=== PATIENT | female | born 1985 | race Caucasian/White ===

== ENCOUNTER 2018-03-03 00:08 | Emergency (ER) | payer MEDICAID ==
[~2018-03-03] VITALS: Ht 167.6 cm; Wt 81.8 kg
[2018-03-03 00:15] VITALS: BP 120/71
== END 2018-03-03 01:00 | disposition left against medical advice (07) ==
LOC: EMS 00:09
DX: M25.512 Pain in left shoulder (principal); R07.9 Chest pain, unspecified; F17.210 Nicotine dependence, cigarettes, uncomplicated; F12.90 Cannabis use, unspecified, uncomplicated; Z53.21 Procedure and treatment not carried out due to patient leaving prior to being seen by health care provider

== ENCOUNTER 2022-09-19 17:56 | Emergency (ER) | payer MEDICAID, OTHER ==
[~2022-09-19] VITALS: Ht 170.2 cm; Wt 94.1 kg
[2022-09-19 18:35] LABS: BASOPHILS % (AUTO) 0.8 % (0.0-2.0); EOSINOPHILS % (AUTO) 3.5 % (1.0-6.0); HEMATOCRIT 42.3 % (36-46); HEMOGLOBIN 13.9 g/dL (12.0-16.0); LYMPHOCYTES % (AUTO) 38.6 % (22.0-44.0); MEAN CORPUSCULAR HEMOGLOBIN 30.9 pg (26.0-34.0); MEAN CORPUSCULAR HGB CONC 32.9 G/dL (31.0-37.0); MEAN CORPUSCULAR VOLUME 94 fL (80-100); MONOCYTES # (AUTO) 0.6 K/uL (0.1-1.0); MONOCYTES % (AUTO) 7.3 % (2.0-9.0); NEUTROPHILS # (AUTO) 3.9 K/uL (1.8-7.7); NEUTROPHILS % (AUTO) 49.8 % (40.0-70.0); PLATELET COUNT (AUTO) 244 K/uL (150-450); RED CELL DISTRIBUTION WIDTH 13.8 % (11.5-14.5)
[2022-09-19 18:56] LABS: ANION GAP 9 mmol/L (8-16); CALCIUM, TOTAL 9.3 mg/dL (8.8-10.5); CARBON DIOXIDE 28 mmol/L (22-29); CHLORIDE 102 mmol/L (98-107); CREATININE 0.64 mg/dL (0.60-1.30); GLOMERULAR FILTR. RATE CALC > 60 mL/min (>60); GLUCOSE,RANDOM 118 mg/dL (70-110); POTASSIUM 3.6 mmol/L (3.5-5.1); SODIUM SERUM 139 mmol/L (136-145); UREA NITROGEN, BLOOD 10 mg/dL (7-18)
[2022-09-19 18:58] LABS: ALANINE AMINOTRANSFERASE 440 U/L (12-78); ALBUMIN 4.3 g/dL (3.4-5.0); ALKALINE PHOSPHATASE 73 U/L (46-116); ASPARTATE AMINOTRANSFERASE 204 U/L (15-37); BILIRUBIN,TOTAL 0.4 mg/dL (0.1-1.0); LIPASE 106 U/L (73-393); TOTAL PROTEIN, SERUM 8.2 g/dL (6.4-8.2)
[2022-09-19 19:27] LABS: SALICYLATE 1.2 mg/dL (2.8-20.0)
[2022-09-19 19:42] LABS: ACETAMINOPHEN < 2 mcg/mL (10-30)
[2022-09-19 19:45] LABS: AMPHET/METH SCREEN,URINE NEGATIVE (NEGATIVE); BARBITURATE SCREEN, URINE NEGATIVE (NEGATIVE); BENZODIAZEPINES SCREEN,URINE NEGATIVE (NEGATIVE); CANNABINOID SCREEN,URINE NEGATIVE (NEGATIVE); COCAINE SCREEN,URINE NEGATIVE (NEGATIVE); METHADONE SCREEN, URINE NEGATIVE (NEGATIVE); OPIATE SCREEN,URINE NEGATIVE (NEGATIVE); PHENCYCLIDINE SCREEN,URINE NEGATIVE (NEGATIVE)
[2022-09-19 20:26] LABS: PROTHROMBIN TIME 10.3 SEC (9.4-11.6)
[2022-09-19 23:38] VITALS: BP 102/64
== END 2022-09-19 23:45 | disposition home or self-care (01) ==
LOC: EMS 18:00
DX: R74.01 Elevation of levels of liver transaminase levels (principal); F17.210 Nicotine dependence, cigarettes, uncomplicated; F12.90 Cannabis use, unspecified, uncomplicated; Z90.49 Acquired absence of other specified parts of digestive tract; Z98.890 Other specified postprocedural states
CPT/HCPCS: 99285; 96374; 76700; 96361; 80053; 83690; 84703; 85025; 85610; 85730; 36415; 80307 ×2; G0480; J7030; G0481

== ENCOUNTER 2022-12-08 09:02 | Emergency (ER) | payer OTHER ==
[~2022-12-08] VITALS: Ht 170.2 cm; Wt 90.9 kg
[2022-12-08] MEDS ORDERED: GLEC1TAB PO (09:08)
[2022-12-08] MEDS ORDERED: IBUP-1492 PO (15:12)
[2022-12-08] MEDS ORDERED: PERCT PO (15:12)
[2022-12-08 15:33] VITALS: BP 122/79
== END 2022-12-08 15:44 | disposition home or self-care (01) ==
LOC: EMS 09:02
DX: S32.2XXA Fracture of coccyx, initial encounter for closed fracture (principal); F17.210 Nicotine dependence, cigarettes, uncomplicated; F12.90 Cannabis use, unspecified, uncomplicated; Z90.49 Acquired absence of other specified parts of digestive tract; Z98.890 Other specified postprocedural states; X58.XXXA Exposure to other specified factors, initial encounter; Y93.89 Activity, other specified; Y92.89 Other specified places as the place of occurrence of the external cause; Y99.8 Other external cause status
CPT/HCPCS: 72131; 72220; 99284